=== PATIENT | female | born 1955 | race Hispanic/Latino ===

== ENCOUNTER → 2024-02-15 | Outpatient (CLI) | payer OTHER ==
--- NOTE | 2024-02-15 09:38 | HMCIMG ---
BONE DENSITOMETRY: HISTORY: ASYMPTOMATIC MENOPAUSAL STATE Comparison: None FINDINGS: BMD measured at AP spine L1-L4 is 0.795 g/cm2 with a T-score of -2.3 Bone density is between 10 and 25% below young normal. This patient is considered osteopenic. Fracture risk is moderate. BMD measured at Left Femoral Neck is 0.596 g/cm2 with a T-score of -2.5 Bone density is between 10 and 25% below young normal. This patient is considered osteopenic. Fracture risk is moderate. BMD measured at Left Femoral Total is 0.742 g/cm2 with a T-score of -1.6 Bone density is between 10 and 25% below young normal. This patient is considered osteopenic. Fracture risk is moderate. IMPRESSION: Osteopenia. Treatment and follow-up recommended.
== END | disposition home or self-care (01) ==
LOC: RAH 08:03
PROVIDERS: ATTEND Internal Medicine Critical Care Medicine
DX: M85.89 Other specified disorders of bone density and structure, multiple sites (principal); Z78.0 Asymptomatic menopausal state
CPT/HCPCS: 77080

== ENCOUNTER → 2024-06-06 | Outpatient (CLI) | payer OTHER ==
--- NOTE | 2024-06-06 17:18 | HMCIMG ---
COLON-GASTROGRAFIN REASON: ABNORMAL FINDINGS ON DIAGNOSTIC IMAGING OF OTHER PARTS OF DIGESTIVE TRACT. COMPARISON: None TECHNIQUE: Gastrografin enema study was performed. FINDINGS: There is no obstruction to the retrograde passage of Gastrografin from rectum through cecum. Reflux into the terminal ileum is seen. There is also reflux into the appendix. No constricting lesion or mass lesion is seen. IMPRESSION: No acute finding. No obstruction.
== END | disposition home or self-care (01) ==
LOC: RAH 07:16
PROVIDERS: ATTEND Surgery
DX: K21.9 Gastro-esophageal reflux disease without esophagitis (principal); R93.3 Abnormal findings on diagnostic imaging of other parts of digestive tract
CPT/HCPCS: 74270